=== PATIENT | male | born 1940 | race Caucasian/White ===

== ENCOUNTER 2020-02-13 08:07 | Observation (INO) | payer MEDICARE, OTHER ==
[~2020-02-13] VITALS: Ht 182.9 cm; Wt 77.3 kg
[2020-02-13] MEDS ORDERED: SODIUM CHLORIDE 0.9% 1,000 ML IV SCH (08:27)
[2020-02-13] MEDS ORDERED: CEFAZOLIN PMX 1GM/50ML 50 ML IVPB ONE (08:30)
[2020-02-13] MEDS ORDERED: MONTELUKAST PO (08:44)
[2020-02-13] MEDS ORDERED: VIT1CAPS11 PO (08:44)
[2020-02-13] MEDS ORDERED: OXYM15SP8 NAS (08:44)
[2020-02-13] MEDS ORDERED: APIX5TAB PO (08:44)
[2020-02-13] MEDS ORDERED: IPRA4AER INH (08:44)
[2020-02-13] MEDS ORDERED: DORZ10DR27 OP (08:44)
[2020-02-13] MEDS ORDERED: TRIA50CA PO (08:44)
[2020-02-13 08:45] VITALS: BP 159/73
[2020-02-13 09:30] LABS: ANION GAP 3 mmol/L (5-15); CALCIUM 9.1 mg/dL (8.5-10.1); CHLORIDE 108 mmol/L (98-107); CREATININE 1.38 mg/dL (0.7-1.3)
[2020-02-13 09:36] LABS: MEAN CORPUSCULAR HGB CONC 31.5 g/dL (33.2-36.2); MEAN CORPUSCULAR VOLUME 91.9 fL (81-97); MEAN PLATELET VOLUME 7.6 fL (7.4-10.4); PLATELET COUNT 111 x10^3/uL (130-400); RED BLOOD COUNT 3.89 x10^6/uL (4.38-5.82); RED CELL DISTRIBUTION WIDTH 15.9 % (9.4-14.8)
[2020-02-13] MEDS ORDERED: MIDAZOLAM 1 MG/ML, 5ML ONE (09:38)
[2020-02-13] MEDS ORDERED: FENTANYL PF 100 MCG/2ML ONE (09:39)
[2020-02-13] MEDS ORDERED: CEFAZOLIN 1,000 MG ONE (09:39)
[2020-02-13] MEDS ORDERED: LIDOCAINE 2%, 20ML ONE (09:39)
[2020-02-13] MEDS ORDERED: CEFAZOLIN PMX 1GM/50ML 50 ML ONE (09:39)
[2020-02-13 10:42] LABS: MD YES
[2020-02-13 10:44] LABS: LYMPH#(MANUAL) 41.13 x10^3/uL (1-3.4); LYMPHS% (MANUAL) 90 % (22-44); MONOS#(MANUAL) 2.29 x10^3/uL (0.3-2.7); MONOS% (MANUAL) 5 % (2-9); REACTIVE LYMPHS # (MANUAL) 0.46 x10^3/uL (0-0); REACTIVE LYMPHS % (MANUAL) 1 % (0-0); SEG#(MANUAL) 1.83 x10^3/uL (1.8-6.8); SEGS% (MANUAL) 4 % (42-75)
[2020-02-13 10:45] LABS: ANISOCYTOSIS 1+; ECHINOCYTES 1+; OVALOCYTES 1+
[2020-02-13 10:46] LABS: <PLATELET ESTIMATE> DECREASED; <PLT MORPHOLOGY> NORMAL PLT MORPH
[2020-02-13 11:24] VITALS: BP 130/69
[2020-02-13] MEDS ORDERED: ACETAMINOPHEN 325 MG TABLET PO PRN (11:30)
[2020-02-13] MEDS ORDERED: HOLD MEDICATION MC PRN (11:30)
[2020-02-13] MEDS: DORZOLAMIDE OPHTH 2%, 10ML OP SCH (12:30)
[2020-02-13] MEDS ORDERED: ALBUTEROL-IPRATROPIUM MDI INH INH PRN (12:30)
[2020-02-13] MEDS: CEFAZOLIN PMX 1GM/50ML 50 ML IVPB SCH (18:11)
[2020-02-13] MEDS: OXYMETAZOLINE NASAL SPRAY 0.05%, 15ML NAS SCH (20:39)
[2020-02-13] MEDS: SODIUM CHLORIDE FLUSH 10ML SYR IVF SCH (20:39)
[2020-02-13 22:35] VITALS: BP 162/99
[2020-02-14 02:05] VITALS: BP 127/65
[2020-02-14] MEDS: CEFAZOLIN PMX 1GM/50ML 50 ML IVPB SCH (02:05)
[2020-02-14] MEDS ORDERED: TRIAMTERENE 25 MG MC SCH (06:30)
[2020-02-14 06:53] VITALS: BP 121/59
[2020-02-14] MEDS ORDERED: ACET325T26 PO (08:00)
[2020-02-14] MEDS ORDERED: MULTIVITAMIN 1 TABLET PO SCH (09:00)
[2020-02-14] MEDS ORDERED: TRIAMTERENE 50 MG CAPSULE PO SCH (09:00)
[2020-02-14] MEDS: OXYMETAZOLINE NASAL SPRAY 0.05%, 15ML NAS SCH (09:00)
[2020-02-14] MEDS: DORZOLAMIDE OPHTH 2%, 10ML OP SCH (09:00)
[2020-02-14] MEDS: SODIUM CHLORIDE FLUSH 10ML SYR IVF SCH (09:00)
== END 2020-02-14 18:22 | disposition home or self-care (01) ==
LOC: CACL 08:07 → INTOOBSV 11:01 → 5SO 11:01 → CACL 14:41
PROVIDERS: ADMIT Internal Medicine Cardiovascular Disease; ATTEND Internal Medicine Cardiovascular Disease
DX: I48.91 Unspecified atrial fibrillation (principal); I49.3 Ventricular premature depolarization; I73.00 Raynaud's syndrome without gangrene; I45.9 Conduction disorder, unspecified; Z79.01 Long term (current) use of anticoagulants; Z79.899 Other long term (current) drug therapy
CPT/HCPCS: 33207; 36415; 71045; 71046; 80048; 85025; 93005; 96365; 96366; 99156; C1779; C1786; C1892; G0378; J0690; J2250; J3010; J3490

== ENCOUNTER → 2020-04-16 | Outpatient (CLI) | payer MEDICARE, OTHER ==
[~2020-04-16] MED LIST: ACET325T26 PO; APIX5TAB PO; DORZ10DR27 OP; IPRA4AER INH; MONTELUKAST PO; OXYM15SP8 NAS; REGADENOSON 0.4 MG/5 ML SYRINGE ONE; TRIA50CA PO; VIT1CAPS11 PO
== END | disposition home or self-care (01) ==
LOC: CFH 07:39
PROVIDERS: ATTEND Internal Medicine Cardiovascular Disease
DX: I48.91 Unspecified atrial fibrillation (principal); I49.3 Ventricular premature depolarization; R29.898 Other symptoms and signs involving the musculoskeletal system
CPT/HCPCS: 78452; 93017; A9502; J2785

== ENCOUNTER → 2021-03-09 | Outpatient (CLI) | payer MEDICARE, OTHER | END | disposition home or self-care (01) | LOC: CFH 13:22 | PROVIDERS: ATTEND Internal Medicine Cardiovascular Disease | DX: I08.8 Other rheumatic multiple valve diseases (principal); I25.10 Atherosclerotic heart disease of native coronary artery without angina pectoris; R06.02 Shortness of breath; R60.0 Localized edema; I82.409 Acute embolism and thrombosis of unspecified deep veins of unspecified lower extremity ==